=== PATIENT | female | born 1960 | race Caucasian/White ===

== ENCOUNTER 2022-04-14 09:41 | Emergency (ER) | payer OTHER, SELFPAY ==
[2022-04-14 10:02] VITALS: BP 111/56; PULSE 90; RESP 16; TEMP 36.2; O2SAT 96; BMI 27.4
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
== END 2022-04-14 11:40 | disposition home or self-care (01) ==
PROVIDERS: Emergency Provider Physician Assistant
DX: T22.20XA Burn of second degree of shoulder and upper limb, except wrist and hand, unspecified site, initial encounter (principal); X15.8XXA Contact with other hot household appliances, initial encounter
CPT/HCPCS: 99282

== ENCOUNTER 2023-02-05 09:21 | Outpatient (CLI) | payer OTHER, SELFPAY ==
--- NOTE | 2023-02-05 09:40 | MM_ITS ---
WS: [id number] BILATERAL SCREENING DIGITAL TOMOSYNTHESIS MAMMOGRAM WITH CAD HISTORY: SCREENING COMPARISON: None available. Bilateral CC and MLO views with tomosynthesis and synthetic mammography submitted. Computer aided det ection analyzed. Breast composition: There are scattered areas of fibroglandular density. No suspicious masses, microc alcifications or architectural distortion. Benign calcifications in each breast. MM/[place] [id number] IMPRESSION: BI-RADS: 2-Benign FOLLOW UP: 1 Year Follow-up
== END 2023-02-05 09:22 | disposition home or self-care (01) ==
LOC: RAD 09:30
PROVIDERS: PCP Family Medicine; Visit Provider Family Medicine
DX: Z12.31 Encounter for screening mammogram for malignant neoplasm of breast (principal)
CPT/HCPCS: 77063; 77067

== ENCOUNTER 2023-03-05 13:51 | Emergency (ER) | payer OTHER, SELFPAY ==
[2023-03-05 14:01] VITALS: BP 149/77; PULSE 89; RESP 18; TEMP 36.8; O2SAT 96; BMI 26.6
--- NOTE | 2023-03-05 14:11 | XR_ITS ---
WS: [id number] Left foot, 3 views, 03/05/2023 Clinical Data: stubbed left great toe Comparison: None. Findings: There is an oblique fracture of the distal aspect of the left first toe proximal phalanx. The fractur e line extends into the PIP joint. No other fractures are seen. There is a plantar spur. The soft tissues are normal. XR/XR foot LT min 3V* [id number] Impression: Fracture of the left first toe proximal phalanx.
--- NOTE | 2023-03-05 14:26 | ED_ITS ---
HPI - Fall General: Chief Complaint: Fall Stated Complaint: Left foot, Big Toe injury Time Seen by Provider: 03/05/23 14:07 History of Present Illness: Patient is a 62-year-old female comes to the ED with left great toe injury. Injury occurred approximately 3 days ago. Patient says she was walking down her steps and missed the last stair. She then stubbed her toe on the floor causing injury. Denies any head trauma or any loss of consciousness. Pain is located in left great toe. Patient has an orthopedic boot from a previous injury that she has been wearing on her left foot. She says when she wears that it helps her pain and she is able to walk on left foot with very minimal amount of pain. Associated symptoms-after fall: Denies abdominal pain, chest pain, headache(s), hematuria or neck pain Review of Systems Const: Denies: fever(s), chills or fatigue Eyes: Denies: change in vision or eye discomfort ENMT: Denies: throat pain, odynophagia, nasal discharge or nasal congestion Card: Denies: chest pain, palpitations, edema, swelling of feet/ankles, dyspnea on exertion or orthopnea Resp: Denies: dyspnea, productive cough or non-productive cough GI: Denies: abdominal pain, nausea, vomiting, diarrhea, constipation or hematochezia : Denies: flank pain, dysuria or hematuria Musc: Reports: extremity pain (Left foot great toe) and extremity swelling (Left foot great toe); Denies: neck pain or back pain Skin/Breast: Denies: rash or new lesions Neuro: Denies: headache(s), numbness in extremities or weakness in extremities [facility] PFSH: Medical History (Updated 03/06/23 @ 07:27 by KIKA Crane) No pertinent family history Surgical History (Updated 03/06/23 @ 07:27 by KIKA Crane) No pertinent past surgical history Physical Exam Const: COMMON NORMALS: patient oriented x3 HENMT: COMMON NORMALS: normocephalic HEAD & SCALP: normocephalic MOUTH: Normal oral and palatal mucosa present THROAT: posterior oropharynx normal and uvula midline Neck/C-Spine: COMMON NORMALS: supple GENERAL: Yes normal visual inspection Resp: COMMON NORMALS: normal respiratory effort, No retractions, No use of accessory muscles and clear to auscultation bilaterally AUSCULTATION: clear to auscultation bilaterally Cardio: COMMON NORMALS: regular rate, regular rhythm, S1 normal heart sound present, S2 normal heart sound present, No gallops present (Cardio), No clicks present (Cardio), No murmurs present (Cardio) and Peripheral pulses 2+ throughout RATE: regular rate RHYTHM: regular rhythm HEART SOUNDS: S1 normal heart sound present and S2 normal heart sound present PERIPHERAL PULSES: Peripheral pulses 2+ throughout GI: COMMON NORMALS: Normal to inspection, nondistended, normoactive bowel sounds present, Soft to palpation, non-tender and no masses PALPATION: Yes Soft to palpation : COMMON NORMALS: Yes no CVA tenderness BLADDER/KIDNEY EXAM: Yes no CVA tenderness Back/Pelvis: COMMON NORMALS: no CVA tenderness Extremity: COMMON NORMALS: full ROM NARRATIVE EXTREMITY EXAM: Left foot?great toe?no visible deformity noted. Some ecchymosis and swelling seen. No nail or nailbed damage noted. Neurovascular intact. Neuro: COMMON NORMALS: patient oriented x3 GAIT: Yes Normal gait present Skin: GENERAL SKIN EXAM: dry skin Course Vital Signs: Vital signs: Vital Signs Temperature 98.3 F 03/05/23 14:01 Pulse Rate 89 03/05/23 14:01 Respiratory Rate 18 03/05/23 14:01 Blood Pressure 149/77 03/05/23 14:01 Pulse Oximetry 96 03/05/23 14:01 Oxygen Delivery Me thod Room Air 03/05/23 14:01 MDM - Fall Medical Decision Making Patient is a 62-year-old female comes to the ED with left great toe injury. Injury occurred approximately 3 days ago. Patient says she was walking down her steps and missed the last stair. She then stubbed her toe on the floor causing injury. Denies any head trauma or any loss of consciousness. Pain is located in left great toe. Patient has an orthopedic boot from a previous injury that she has been wearing on her left foot. She says when she wears that it helps her pain and she is able to walk on left foot with very minimal amount of pain. Vital stable. Left foot?great toe?no visible deformity noted. Some ecchymosis and swelling seen. No nail or nailbed damage noted. Neurovascular intact. X- ray of left foot shows first toe proximal phalanx fracture. Patient currently has a boot and I told her to continue wearing it. I placed order with case management for patient to be referred to podiatry for follow-up on toe fracture. She was diagnosed with fracture of the great toe and stable for discharge home in boot. Lab Data Radiology Impressions Foot X-Ray 03/05/23 14:11 Impression: Fracture of the left first toe proximal phalanx. Discharge Plan Discharge Patient Disposition: Home Clinical Impression: Fracture of great toe Qualifiers: Encounter type: initial encounter Fracture type: closed Phalanx: proximal Fracture alignment: nondisplaced Laterality: left Qualified Code(s): S92.415A - Nondisplaced fracture of proximal phalanx of left great toe, initial encounter for closed fracture Condition: Stable Discharge Orders: Discharge ED (Routine); Ordered 03/05/23 Ordered By: Roge Mansfield Referrals: Rocio Reynoso MD [Primary Care Provider] - Discharge Diet: Regular Discharge Activity: Limit activity as instructed Patient Instructions: Toe Fracture (ED) Activity Restrictions/Additional Instructions: Follow-up with medical provider as directed. Case management to be contacted in the next several days to set up an appointment with electron microprobe operator for follow-up on toe fracture. Continue wearing Ortho boot on left foot when ambulating until you are cleared by podiatry. Take [id number] ibuprofen or Tylenol for pain. Return to the ER or your medical provider if condition worsens. Please re ad and understand discharge instructions. Thank you for choosing [facility] for your healthcare needs today. Please realize this is an emergency room and that we are providing you with a medical screening exam and this may not be complete and all inclusive of all the testing and or work up that you may need to determine your ailment or severity of your illness. It is very important that you follow up as instructed or that you return to the Emergency Department should you have concerns or if your condition changes or worsens in any way. Coding Level of Care Code ED Hay Sorter for Ashvin Sylvester
--- NOTE | 2023-03-05 15:05 | PC.NURSE ---
Addendum entered by Guerline Mosqueda 03/17/23 11:10: Patient had a follow up appointment at ortho - patient did attend appointment. Addendum entered by Guerline Mosqueda 03/06/23 09:39: Patient has a followup appointment scheduled for Friday, March 10, [address]23 at 3:[address] Harrington at podiatry. Original Note: Patient seen in the ED on 03/05/23. Referral to Podiatry for left great toe fracture. Message sent to clinic to call patient for an appt.
== END 2023-03-05 14:58 | disposition home or self-care (01) ==
PROVIDERS: Emergency Provider Physician Assistant; PCP Family Medicine
DX: S92.425A Nondisplaced fracture of distal phalanx of left great toe, initial encounter for closed fracture (principal); W22.09XA Striking against other stationary object, initial encounter; Y93.01 Activity, walking, marching and hiking; Y92.009 Unspecified place in unspecified non-institutional (private) residence as the place of occurrence of the external cause
CPT/HCPCS: 73630; 99282

== ENCOUNTER → 2023-04-29 08:15 | Outpatient (BNVA) | payer OTHER, SELFPAY | PROVIDERS: PCP Family Medicine; Visit Provider Podiatrist Foot & Ankle Surgery | DX: S92.412A Displaced fracture of proximal phalanx of left great toe, initial encounter for closed fracture (principal); X58.XXXA Exposure to other specified factors, initial encounter | CPT/HCPCS: 73630 ==

== ENCOUNTER 2024-11-11 11:57 | Outpatient (CLI) | payer OTHER, SELFPAY ==
--- NOTE | 2024-11-11 12:00 | MM_ITS ---
WS: [id number] BILATERAL SCREENING DIGITAL TOMOSYNTHESIS MAMMOGRAM WITH CAD HISTORY: SCREENING COMPARISON: 02/05/2023 Bilateral CC and MLO views with tomosynthesis and synthetic mammography submitted. Computer aided det ection analyzed. Breast composition: There are scattered areas of fibroglandular density. No suspicious masses, microc alcifications or architectural distortion. Benign calcifications 12:00 LEFT breast. MM/MM scr BI tomosynthesis [id number] IMPRESSION: BI-RADS: 2 - Benign. FOLLOW UP: 1 Year Follow-up
== END 2024-11-11 11:58 | disposition home or self-care (01) ==
LOC: MOBLMAM 12:00
PROVIDERS: PCP Nurse Practitioner Family; Visit Provider Nurse Practitioner Family
DX: Z12.31 Encounter for screening mammogram for malignant neoplasm of breast (principal); R92.323 Mammographic fibroglandular density, bilateral breasts; R92.1 Mammographic calcification found on diagnostic imaging of breast
CPT/HCPCS: 77063; 77067